=== PATIENT | male | born 1965 | race Caucasian/White ===

== ENCOUNTER 2021-10-03 04:58 | Emergency (ER) | payer MEDICARE, MEDICAID ==
[~2021-10-03] VITALS: Ht 162.6 cm; Wt 73.0 kg
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
[2021-10-03] MEDS ORDERED: IBUPROFEN 200 MG TABLET. PO ONE (05:15)
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
[2021-10-03 08:00] VITALS: BP 127/72
== END 2021-10-03 08:40 | disposition home or self-care (01) ==
LOC: ER 04:58
DX: S00.03XA Contusion of scalp, initial encounter (principal); M25.522 Pain in left elbow; M54.50 Low back pain, unspecified; M54.6 Pain in thoracic spine; F31.9 Bipolar disorder, unspecified; I10 Essential (primary) hypertension; E03.9 Hypothyroidism, unspecified; F20.9 Schizophrenia, unspecified; Y08.89XA Assault by other specified means, initial encounter; Y93.89 Activity, other specified; Y92.89 Other specified places as the place of occurrence of the external cause; Y99.8 Other external cause status
CPT/HCPCS: 70450; 72125; 73080; 99284-25

== ENCOUNTER 2021-10-27 22:10 | Emergency (ER) | payer MEDICARE, MEDICAID ==
[~2021-10-27] VITALS: Ht 167.6 cm; Wt 73.0 kg
[2021-10-27] MEDS ORDERED: diphenhydrAMINE HCL 25 MG CAPSULE PO ONE (22:30)
[2021-10-28 04:21] VITALS: BP 111/70
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
== END 2021-10-28 05:00 | disposition home or self-care (01) ==
LOC: ER 22:10
DX: R45.1 Restlessness and agitation (principal); F31.9 Bipolar disorder, unspecified; I10 Essential (primary) hypertension; E03.9 Hypothyroidism, unspecified; F20.9 Schizophrenia, unspecified; Z88.8 Allergy status to other drugs, medicaments and biological substances
CPT/HCPCS: 99283; Q0163; 36415; 80048; 80307; 85025; G0480

== ENCOUNTER → 2021-10-27 | Emergency (ER) | payer MEDICARE, MEDICAID ==
[~2021-10-27] VITALS: Ht 167.6 cm; Wt 73.0 kg
[2021-10-27 04:36] LABS: BASO % 1 % (0-3); EOS # 0.2 x10^3/uL (0.0-0.7); EOS % 3 % (0-3); HEMATOCRIT 34.9 % (39.0-53.0); HEMOGLOBIN 11.6 g/dL (13.0-17.5); LYMPH # 1.4 x10^3/uL (1.0-4.8); LYMPH % 17 % (24-48); MEAN CORPUSCULAR HEMOGLOBIN 31 pg (25-35); MEAN CORPUSCULAR HGB CONC 33 g/dL (31-37); MEAN CORPUSCULAR VOLUME 94 fL (79-100); MONO # 0.6 x10^3/uL (0.0-1.1); MONO % 7 % (0-9); NEUT % 73 % (31-73); PLATELET COUNT 221 x10^3/uL (140-400); RED BLOOD COUNT 3.71 x10^6/uL (4.30-5.70); RED CELL DISTRIBUTION WIDTH 13.9 % (11.5-14.5); WHITE BLOOD COUNT 8.2 x10^3/uL (4.0-11.0)
[2021-10-27 04:55] LABS: CALCIUM 8.1 mg/dL (8.5-10.1); GFR 77.9; POTASSIUM 3.8 mmol/L (3.5-5.1)
[2021-10-27 05:15] LABS: BARBITURATES NEG (NEG); BENZODIAZEPINES NEG (NEG); CANNABINOIDS NEG (NEG); COCAINE NEG (NEG); METHADONE NEG (NEG); OPIATES NEG (NEG); PHENCYCLIDINE NEG (NEG)
[2021-10-27 05:33] VITALS: BP 169/74
[2021-10-27 05:47] LABS: AMPHETAMINE/METHAMPHETAMINE NEG (NEG)
--- NOTE | 2021-10-27 06:13 | PHYS DOC ---
Past Medical History Past Medical History: Anxiety, Bipolar, Constipation, Depression, Hypertension, Hypothyroid, Schizophrenia Additional Past Medical Histor: Insomnia Past Surgical History: Other Additional Past Surgical Histo: UNKNOWN Smoking Status: Unknown if ever smoked Alcohol Use: None General Adult EDM: Chief Complaint: PSYCH EVALUATION HPI: HPI: Patient is a 56 year old female male who presents from a local psychiatric facility for medication adjustment. Patient apparently has been at this local facility for several days. Tonight he became agitated was trying to run out. Staff daughter be prudent to send him here for medication adjustment. On arrival here patient calm and at baseline. He denies any complaints at this time. Review of Systems: Review of Systems: Constitutional: Denies fever or chills. [] Eyes: Denies change in visual acuity. [] HENT: Denies nasal congestion or sore throat. [] Respiratory: Denies cough or shortness of breath. [] Cardiovascular: Denies chest pain or edema. [] GI: Denies abdominal pain, nausea, vomiting, bloody stools or diarrhea. [] : Denies dysuria. [] Musculoskeletal: Denies back pain or joint pain. [] Integument: Denies rash. [] Neurologic: Denies headache, focal weakness or sensory changes. [] Endocrine: Denies polyuria or polydipsia. [] Lymphatic: Denies swollen glands. [] Psychiatric: Denies depression or anxiety. [] Heart Score: C/O Chest Pain: No Family History: Family History: Noncontributory Allergies: Allergies: Allergies Coded Allergies Type Severity Reaction Last Updated Verified haloperidol Allergy Intermediate 10/03/21 Yes Physical Exam: PE: Constitutional: Well developed, well nourished, no acute distress, non-toxic appearance. [] HENT: Normocephalic, atraumatic, bilateral external ears normal, oropharynx moist, no oral exudates, nose normal. [] Eyes: PERRLA, EOMI, conjunctiva normal, no discharge. [] Neck: Normal range of motion, no tenderness, supple, no stridor. [] Cardiovascular:Heart rate regular rhythm, no murmur [] Lungs & Thorax: Bilateral breath sounds clear to auscultation [] Abdomen: Bowel sounds normal, soft, no tenderness, no masses, no pulsatile masses. [] Skin: Warm, dry, no erythema, no rash. [] Back: No tenderness, no CVA tenderness. [] Extremities: No tenderness, no cyanosis, no clubbing, ROM intact, no edema. [] Neurologic: Alert and oriented X 3, normal motor function, normal sensory function, no focal deficits noted. [] Psychologic: Tended tangential and grandiose thinking. Current Patient Data: Labs: Laboratory Tests Test 10/27/21 04:30 10/27/21 04:52 White Blood Count 8.2 x10^3/uL (4.0-11.0) Red Blood Count 3.71 x10^6/uL (4.30-5.70) L Hemoglobin 11.6 g/dL (13.0-17.5) L Hematocrit 34.9 % (39.0-53.0) L Mean Corpuscular Volume 94 fL (79-100) Mean Corpuscular Hemoglobin 31 pg (25-35) Mean Corpuscular Hemoglobin Concent 33 g/dL (31-37) Red Cell Distribution Width 13.9 % (11.5-14.5) Platelet Count 221 x10^3/uL (140-400) Neutrophils (%) (Auto) 73 % (31-73) Lymphocytes (%) (Auto) 17 % (24-48) L Monocytes (%) (Auto) 7 % (0-9) Eosinophils (%) (Auto) 3 % (0-3) Basophils (%) (Auto) 1 % (0-3) Neutrophils # (Auto) 6.0 x10^3/uL (1.8-7.7) Lymphocytes # (Auto) 1.4 x10^3/uL (1.0-4.8) Monocytes # (Auto) 0.6 x10^3/uL (0.0-1.1) Eosinophils # (Auto) 0.2 x10^3/uL (0.0-0.7) Basophils # (Auto) 0.0 x10^3/uL (0.0-0.2) Sodium Level 142 mmol/L (136-145) Potassium Level 3.8 mmol/L (3.5-5.1) Chloride Level 107 mmol/L (98-107) Carbon Dioxide Level 27 mmol/L (21-32) Anion Gap 8 (6-14) Blood Urea Nitrogen 12 mg/dL (8-26) Creatinine 1.0 mg/dL (0.7-1.3) Estimated GFR (Cockcroft-Gault) 77.9 Glucose Level 105 mg/dL (70-99) H Calcium Level 8.1 mg/dL (8.5-10.1) L Ethyl Alcohol Level < 10 mg/dL (0-10) Urine Opiates Screen Neg (NEG) Urine Methadone Screen Neg (NEG) Urine Barbiturates Neg (NEG) Urine Phencyclidine Screen Neg (NEG) Urine Amphetamine/Methamphetamine Neg (NEG) Urine Benzodiazepines Screen Neg (NEG) Urine Cocaine Screen Neg (NEG) Urine Cannabinoids Screen Neg (NEG) Urine Ethyl Alcohol Neg (NEG) Laboratory Tests 10/27/21 04:30 Laboratory Tests 10/27/21 04:30 Vital Signs: Vital Signs Date Time Temp Pulse Resp B/P (MAP) Pulse Ox O2 Delivery O2 Flow Rate FiO2 10/27/21 03:33 85 18 119/70 (86) 98 Room Air 10/27/21 03:25 98.0 98.0 EKG: EKG: [] Radiology/Procedures: Radiology/Procedures: [] Impression: Schizophrenic Course & Med Decision Making: Course & Med Decision Making Basic labs obtained and unremarkable. Patient is medically cleared to go back to his psychiatric facility. Cholo Disclaimer: Cholo Disclaimer: This electronic medical record was generated, in whole or in part, using a voice recognition dictation system. Departure Departure Impression: Primary Impression: Karine Condition: GOOD Referrals: NO PCP (PCP) GABBIE CATES MD October 27, 2021 06:13
== END ==
LOC: ER 03:24
DX: F31.9 Bipolar disorder, unspecified (principal); I10 Essential (primary) hypertension; E03.9 Hypothyroidism, unspecified; F20.9 Schizophrenia, unspecified; Z88.8 Allergy status to other drugs, medicaments and biological substances
CPT/HCPCS: 36415; 80048; 80307; 85025; 99283; G0480